=== PATIENT | female | born 1960 | race Caucasian/White ===

== ENCOUNTER → 2017-03-10 | Outpatient (CLI) | payer MEDICARE ==
[~2017-03-10] MED LIST: ACYCLOVIR 400400 MG PO; ALLOPURINOL 10100 M1 PO; CEFUROXIME250 MG PO; CURCUMIN1 GM PO; DYAZIDE 37.5-21 EACH PO; ESTRACE0.5 MG PO; FISH OIL 1,2001 EAC4 PO; FLAGYL500 MG PO; MOBIC7.5 MG PO; OMEPRAZOLE20 M1 PO; PAMELOR25 MG PO; TRAMADOL 50 MG50 MG PO; TRIAMTERENE-HC1 EAC2 PO
== END ==
LOC: M.RAD 15:27
DX: Z12.31 Encounter for screening mammogram for malignant neoplasm of breast (principal); M18.12 Unilateral primary osteoarthritis of first carpometacarpal joint, left hand; K57.30 Diverticulosis of large intestine without perforation or abscess without bleeding

== ENCOUNTER → 2017-04-24 | Outpatient (CLI) | payer MEDICARE ==
[2017-04-24 15:41] LABS: HEMATOCRIT 31.8 % (37.0-47.0); HEMOGLOBIN 10.9 gm/dL (12.0-15.0); MCH 34.4 pg (26.0-34.0); MCHC 34.2 g/dL (28.0-37.0); MCV 100.4 fL (80.0-100.0); MPV 7.1 fl. (7.2-11.1); RBC 3.17 mil/uL (4.20-5.00); RDW-CV 13.2 % (10.5-14.5); WBC 4.3 thou/uL (4.0-11.0)
[2017-04-24 15:46] LABS: CREATININE 0.8 mg/dL (0.6-1.3); POTASSIUM 3.7 mmol/L (3.5-5.1)
== END ==
LOC: M.LAB 15:11
PROVIDERS: Podiatrist Foot & Ankle Surgery
DX: M20.12 Hallux valgus (acquired), left foot (principal); M20.42 Other hammer toe(s) (acquired), left foot; R79.89 Other specified abnormal findings of blood chemistry

== ENCOUNTER → 2017-09-27 | Outpatient (CLI) | payer MEDICARE ==
--- NOTE | 2017-09-28 11:44 | CON ---
[address] [address] CONSULTATION Name: VAL DO Room: [facility].#: [id number] Admission: 09/27/17 Attend Phys: Benito Boland DPM Discharge: Date of : 56 Report #: [id number] THIS REPORT FOR: //name// CC: Benito Vasquez [facility] DATE OF SERVICE: 09/27/2017 ATTENDING PHYSICIAN: Dr. Benito Boland. REASON FOR EVALUATION: This is an initial referral for surgical site infection, right great toe amputation site. HISTORY OF PRESENT ILLNESS: Chart reviewed, patient examined. This is a 56-year-old with a significant peripheral neuropathy, although does not have diabetes, who underwent toe amputation due to bunion, roughly 4 weeks ago. This was complicated by evaluation last week, which showed evidence of wound dehiscence, increasing inflammation, some necrotic tissue. There is question of a surgical site infection, this was cultured, those results are pending. She has been placed empirically on therapy with minocycline. Due to lack of response, this was switched to Bactrim, in addition, until response, there were perhaps adverse drug effects as well with dizziness. Clinically, she is improved more locally at the site. There is overall less inflammation noted. It is open post debridement. ASSESSMENT AND PLAN: Surgical site infection. We will continue plan with prescribed oral sulfamethoxazole, trimethoprim. We will await those culture results. We will see her back in 1 week. Wound care as per prescribed by Dr. Boland. <ELECTRONICALLY SIGNED> By: Sky Moreno MD 09/28/17 1144 1623 0418Jochar Moreno MD /nt
== END ==
LOC: M.WC 09-26 14:00
DX: T81.89XD Other complications of procedures, not elsewhere classified, subsequent encounter (principal); M10.9 Gout, unspecified; G62.9 Polyneuropathy, unspecified; Z90.710 Acquired absence of both cervix and uterus; Y83.8 Other surgical procedures as the cause of abnormal reaction of the patient, or of later complication, without mention of misadventure at the time of the procedure

== ENCOUNTER → 2017-10-04 | Outpatient (CLI) | payer MEDICARE ==
--- NOTE | 2017-10-05 16:41 | CON ---
[address] [address] CONSULTATION Name: VAL DO Room: [facility]#: [id number] Admission: 10/04/17 Attend Phys: Benito Boland DPM Discharge: Date of : 56 Report #: [id number] THIS REPORT FOR: //name// CC: Benito Cruz DATE OF SERVICE: 10/04/2017 ATTENDING PHYSICIAN: Benito Boland DPM. HISTORY OF PRESENT ILLNESS: She returns today in followup after being seen 1 week ago with right great toe amputation site infection, does have an open wound exposed. Evaluation noted to have significant less inflammation superficially. There is no particular odor, no purulent drainage. There is mild degree of debris and exudate. Paulette-wound callous Dr. Boland removed the sutures along the dorsal aspect. There is no apparent exposed bone. ASSESSMENT AND PLAN: Surgical site infection. We will extend the antibiotics 1 additional week. We will see her back at that point and likely discontinue. She is to continue wound care as prescribed by Dr. Boland, offload and continue wound , optimize her nutritional status. <ELECTRONICALLY SIGNED> By: Sky Moreno MD 10/05/17 1641 0911 1330Joseph Austyn Moreno MD /nt
== END ==
LOC: M.WC 01:37
DX: T87.81 Dehiscence of amputation stump (principal); L89.893 Pressure ulcer of other site, stage 3; L84 Corns and callosities; M10.9 Gout, unspecified; Y83.5 Amputation of limb(s) as the cause of abnormal reaction of the patient, or of later complication, without mention of misadventure at the time of the procedure

== ENCOUNTER → 2017-10-11 | Outpatient (CLI) | payer MEDICARE ==
--- NOTE | 2017-10-12 15:01 | CON ---
[address] [address] CONSULTATION Name: VAL DO Room: [facility]#: [id number] Admission: 10/11/17 Attend Phys: Benito Boland DPM Discharge: Date of : 56 Report #: [id number] THIS REPORT FOR: //name// CC: Benito Cruz DATE OF SERVICE: 10/12/2017 INFECTIOUS DISEASE CONSULTATION FOLLOWUP ATTENDING PHYSICIAN: Benito Boland DPM. HISTORY OF PRESENT ILLNESS: She is here for followup great toe amputation site due to chronic osteomyelitis. She has completed prescribed course of therapy. On evaluation, the wound appears to be overall less inflamed. Denies any localizing signs or symptoms, although she does have significant peripheral neuropathy. She has not been systemically ill. ASSESSMENT AND PLAN: Surgical site infection. She has completed the prescribed course of Bactrim. We will discontinue the antibiotics at this point and follow. Continue wound care as prescribed by Dr. Boland and we will see as noted. <ELECTRONICALLY SIGNED> By: Sky Moreno MD 10/12/17 1501 0900 1243Sky Moreno MD /nt
== END ==
LOC: M.WC 04:37
DX: T87.89 Other complications of amputation stump (principal); L89.893 Pressure ulcer of other site, stage 3; L84 Corns and callosities; M10.9 Gout, unspecified; G62.9 Polyneuropathy, unspecified; Y83.5 Amputation of limb(s) as the cause of abnormal reaction of the patient, or of later complication, without mention of misadventure at the time of the procedure

== ENCOUNTER → 2017-10-18 | Outpatient (CLI) | payer MEDICARE ==
--- NOTE | 2017-10-20 07:56 | CON ---
[address] [address] CONSULTATION Name: VAL DO Room: [facility] [place]#: [id number] Admission: 10/18/17 Attend Phys: Benito Boland DPM Discharge: Date of : 56 Report #: [id number] THIS REPORT FOR: //name// CC: Benito Cruz DATE OF SERVICE: 10/18/2017 ATTENDING PHYSICIAN: Dr. Benito Rios. REASON FOR EVALUATION: She is status post right great toe amputation due to deep infection. HISTORY OF PRESENT ILLNESS: Chart reviewed. The patient presents for followup, having been discontinued from the antibiotics one week ago. She felt there may be slightly increase in the redness. She denies any localizing signs or symptoms, although it is notable that she has significant peripheral neuropathy. She has not been systemically ill. On examination, there is a mild degree of erythema. I think it is more consistent with hyperemia. There is no particular odor, no purulence. There is no exposed bone at this point. Per the nurse the dimensions measure smaller. ASSESSMENT AND PLAN: Right great toe amputation secondary to a deep infection complicated by surgical site infection. We will continue off antibiotics. She was instructed to call if she felt there was increasing in inflammation. Again, the cardinal signs were discussed. We will plan on seeing her back in 1 week. Continue offloading and wound care. <ELECTRONICALLY SIGNED> By: Sky Moreno MD 10/20/17 [phone] [id number] Austyn Moreno MD /nt
== END ==
LOC: M.WC 04:53
DX: T87.89 Other complications of amputation stump (principal); L89.893 Pressure ulcer of other site, stage 3; L84 Corns and callosities; G62.9 Polyneuropathy, unspecified; M10.9 Gout, unspecified; Z90.710 Acquired absence of both cervix and uterus; Y83.5 Amputation of limb(s) as the cause of abnormal reaction of the patient, or of later complication, without mention of misadventure at the time of the procedure

== ENCOUNTER → 2017-10-25 | Outpatient (CLI) | payer MEDICARE ==
--- NOTE | 2017-10-26 11:07 | CON ---
[address] [address] CONSULTATION Name: VAL DO Room: [facility] [place]#: [id number] Admission: 10/25/17 Attend Phys: Benito Boland DPM Discharge: Date of : 56 Report #: [id number] THIS REPORT FOR: //name// CC: Benito Cruz DATE OF SERVICE: 10/25/2017 ATTENDING PHYSICIAN: Dr. Benito Boland. HISTORY OF PRESENT ILLNESS: The patient is seen in followup status post right great toe amputation with residual ulcer. She was seen last week, felt to have increasing inflammation at the site after several weeks post-procedure. Wound was cultured, did have a heavy growth of coag-negative Staph with multi-resistant organism. Today; however, the site appears to be improved, showing no drainage, no particular odor, no significant tissue breakdown. She denies any systemic illness. She has profound peripheral neuropathy. Right great toe amputation. I was present with Dr. Boland, who debrided the wound base, appears to be quite firm. There is no bogginess to it, no friability to suggest infection. Chronic right great toe amputation site ulcer. At this point, would add gentamicin as a topical therapy. We will hold off any systemic antibiotics at this point. Continue wound care as prescribed. She was instructed to call if she was worsening. Follow up in 1 week. <ELECTRONICALLY SIGNED> By: Sky Moreno MD 10/26/17 1107 0634 0650Josekelsey Moreno MD /nt
== END ==
LOC: M.WC 03:06
DX: T87.43 Infection of amputation stump, right lower extremity (principal); L89.893 Pressure ulcer of other site, stage 3; L84 Corns and callosities; G62.9 Polyneuropathy, unspecified; M10.9 Gout, unspecified; Y83.5 Amputation of limb(s) as the cause of abnormal reaction of the patient, or of later complication, without mention of misadventure at the time of the procedure

== ENCOUNTER → 2017-11-01 | Outpatient (CLI) | payer MEDICARE ==
--- NOTE | 2017-11-02 12:26 | CON ---
[address] [address] CONSULTATION Name: VAL DO [id number] Admission: 11/01/17 Attend Phys: Benito Boland DPM Discharge: Date of : 56 Report #: [id number] THIS REPORT FOR: //name// CC: Benito Cruz DATE OF SERVICE: 11/01/2017 INFECTIOUS DISEASE CONSULTATION AND FOLLOWUP ATTENDING PHYSICIAN: Dr. Benito Rios. HISTORY OF PRESENT ILLNESS: She is here for wound post right great toe amputation at the base. This was postoperative complication of superficial infection. She did receive a course of systemic and now topical therapy with gentamicin, had some coag-negative Staphylococcus. She has generally been doing well over the course of the last couple of weeks. Denies any particular discomfort. It is notable she has profound peripheral neuropathy. The drainage has improved. The overall appearance is decreased inflammation. She has not been systemically ill. Dr. Boland debrided the site, there was no exposed bone. Granulation tissue continues to improve, overall size of the wound is perhaps marginally smaller. Postoperative infection, post right great toe amputation. At this point, we would continue the topical gentamicin to improve antimicrobial control at the site. Note, we would not extend any systemic antibiotics. Continue wound care as prescribed by Dr. Boland. We will be available as needed. <ELECTRONICALLY SIGNED> By: Sky Moreno MD 11/02/17 1226 0904 1112Jochar Moreno MD /darcy
== END ==
LOC: M.WC 05:20
DX: T81.31XD Disruption of external operation (surgical) wound, not elsewhere classified, subsequent encounter (principal); L89.893 Pressure ulcer of other site, stage 3; L84 Corns and callosities; L03.115 Cellulitis of right lower limb; G62.9 Polyneuropathy, unspecified; M10.9 Gout, unspecified; Y83.8 Other surgical procedures as the cause of abnormal reaction of the patient, or of later complication, without mention of misadventure at the time of the procedure

== ENCOUNTER → 2017-11-08 | Outpatient (CLI) | payer MEDICARE | LOC: M.WC 04:31 | DX: T87.89 Other complications of amputation stump (principal); L89.893 Pressure ulcer of other site, stage 3; L84 Corns and callosities; G62.9 Polyneuropathy, unspecified; M10.9 Gout, unspecified; Y83.5 Amputation of limb(s) as the cause of abnormal reaction of the patient, or of later complication, without mention of misadventure at the time of the procedure ==

== ENCOUNTER → 2017-11-29 | Outpatient (CLI) | payer MEDICARE | LOC: M.WC 05:43 | DX: T87.89 Other complications of amputation stump (principal); L89.893 Pressure ulcer of other site, stage 3; L84 Corns and callosities; G62.9 Polyneuropathy, unspecified; M10.9 Gout, unspecified; Y83.5 Amputation of limb(s) as the cause of abnormal reaction of the patient, or of later complication, without mention of misadventure at the time of the procedure ==

== ENCOUNTER → 2017-12-13 | Outpatient (CLI) | payer MEDICARE | LOC: M.WC 03:02 | DX: T87.89 Other complications of amputation stump (principal); L89.893 Pressure ulcer of other site, stage 3; L84 Corns and callosities; G62.9 Polyneuropathy, unspecified; M10.9 Gout, unspecified; Y83.5 Amputation of limb(s) as the cause of abnormal reaction of the patient, or of later complication, without mention of misadventure at the time of the procedure ==

== ENCOUNTER → 2018-01-10 | Outpatient (CLI) | payer MEDICARE | LOC: M.WC 12-27 13:00 | DX: T81.89XD Other complications of procedures, not elsewhere classified, subsequent encounter (principal); L84 Corns and callosities; Z89.411 Acquired absence of right great toe; Y83.8 Other surgical procedures as the cause of abnormal reaction of the patient, or of later complication, without mention of misadventure at the time of the procedure ==

== ENCOUNTER → 2018-02-22 | Outpatient (CLI) | payer MEDICARE | LOC: M.ULTRA 13:43 | DX: M79.89 Other specified soft tissue disorders (principal); R22.32 Localized swelling, mass and lump, left upper limb ==

== ENCOUNTER → 2018-06-11 | Outpatient (CLI) | payer MEDICARE | LOC: M.RAD 13:16 | DX: Z12.31 Encounter for screening mammogram for malignant neoplasm of breast (principal) ==

== ENCOUNTER → 2018-10-05 | Outpatient (CLI) | payer MEDICARE | LOC: M.MRI 11:10 | DX: M51.16 Intervertebral disc disorders with radiculopathy, lumbar region (principal); M48.061 Spinal stenosis, lumbar region without neurogenic claudication; M41.86 Other forms of scoliosis, lumbar region ==

== ENCOUNTER → 2019-03-05 | Outpatient (CLI) | payer MEDICARE ==
[~2019-03-05] MED LIST changes: +ALEVE220 M1 PO
--- NOTE | ~2019-03-05 | PAINCON ---
[place] [address] PAIN MANAGEMENT CONSULTATION Name: VAL DO Room: [facility] RogersJonathan#: [id number] Admission: 03/05/19 Attend Phys: Brett Hawkins MD Discharge: Date of : 56 Report #: [id number] THIS REPORT FOR: //name// CC: Christina Galdamez DATE OF SERVICE: 03/05/2019 CHIEF COMPLAINT: Low back pain with pain down into the right leg. HISTORY: The patient is a 58-year-old female who has been referred to the Pain Clinic because of pain, which is radiating down in her right leg. It also involves the thigh. The patient has tried physical therapy. She is unable to do this secondary to the pain. She had epidural steroid injections in the distant past. These were beneficial. She feels that another injection might be helpful. She has been experiencing some pain and discomfort down in her feet, which is of a neuropathic in nature. She did have back surgery in 2011. She also had foot surgery in 2016. She denies any new bowel or bladder dysfunction. PAST MEDICAL HISTORY: Herpes, hypertension, gout, and peripheral neuropathy. History of diverticulitis and symptomatic lumbar radiculopathy and lumbosacral spondylosis without myelopathy. PAST SURGICAL HISTORY: Hysterectomy 2000, back surgery 2011, tonsillectomy 1977, and foot surgery, right side . ALLERGIES: No known drug allergies. CURRENT MEDICATIONS: Acyclovir 400 mg, Estrace 0.5 mg, Naprosyn 220 mg every 8 hours p.r.n., Pamelor 25 mg, omeprazole 20 mg, tramadol 50 mg t.i.d., triamterene/hydrochlorothiazide 37.5/25, and turmeric 1 gram powder. SOCIAL HISTORY: The patient is on disability, not working at this juncture, receiving workmen's compensation disability income. REVIEW OF SYSTEMS: Generally good health, sore throat, swollen glands and neck, bowel movement changes, back pain, lightheadedness, and dizziness. LABORATORY DATA: No new laboratory values are available. Old MRI dated 03/09/2011 indicates small broad-based posterior disk bulge. There is some a mild facet arthrosis. There is no significant central canal stenosis. At L5-S1, there is a small diffuse posterior disk bulge with a shallow right paracentral disk protrusion. Right convexity, lumbar scoliosis with multilevel lumbar spondylosis including degenerative disk and facet arthrosis, most prominent along the mid and left aspects of the L2-L3 and L3-[place] [address] PAIN MANAGEMENT CONSULTATION Name: HIBRAXTON HOLLYSue Rogers Room: [facility]#: [id number] Admission: 03/05/19 Attend Phys: Brett Hawkins MD Discharge: Date of : 56 Report #: [id number] PAIN CLINIC ASSESSMENT AND PQRS: 1. Height 5 feet 9 inches, weight 149 pounds, BMI is 22. 2. Vital signs: Blood pressure 131/85, heart rate 77, respiratory rate 16, room air saturation 96%, and temperature 97.4. 3. Pain intensity 7/10. 4. Fall history: The patient has not fallen in the last 3 months. 5. Blood thinner. The patient is not on a blood thinning medication. 6. Hypertension. The patient is being treated for hypertension. 7. Opioids greater than 6 weeks. The patient is not on an opioid regimen on a regular basis. 8. Risk assessment tool, low for opioid use. 9. Functional assessment tool reviewed, score 30/70. 10. Recreational drug use: The patient denies. 11. Tobacco: The patient denies. 12. Alcohol: The patient rarely drinks alcoholic beverages. PHYSICAL EXAMINATION: GENERAL: The patient is a well-developed, well-nourished white female. Appears her stated age. She is alert and oriented x 3. Her affect is appropriate. Speech is fluent. HEENT: Normocephalic, atraumatic. Extraocular eye muscles intact. Sclerae nonicteric. Mucous membranes are moist. NECK: Without adenopathy or JVD. HEART: Regular rate. LUNGS: Clear to auscultation. ABDOMEN: Nontender. Bowel sounds present. EXTREMITIES: Upper extremity muscle strength judged to be 5/5 for the major muscle groups in the upper extremity. The patient has pain and discomfort in lower portion of her back with pain radiating down to the right thigh and into the anterior area in the L2-L3 dermatome of her thigh. Muscle strength is judged to be 5-/5 for the major muscle groups in the lower extremity on the right and 5/5 for the major muscle groups on the left. IMPRESSION: 1. Lumbar radicular pain in the L2-L3 area on the right leg. 2. Herpes. 3. Hypertension. 4. Gout. 5. Peripheral neuropathy. 6. History of diverticulitis. 7. Symptomatic lumbar radiculopathy. 8. Lumbosacral spondylosis without myelopathy. RECOMMENDATIONS: We discussed treatment options with the patient. Risks and benefits of an epidural steroid injection were discussed. They include but are [address] [place] [address] PAIN MANAGEMENT CONSULTATION Name: VAL DO Room: [facility]#: [id number] Admission: 03/05/19 Attend Phys: Brett Hawkins MD Discharge: Date of : 56 Report #: [id number] not limited to infection, worsening pain, no improvement in pain, nerve damage, spinal headache and the patient agrees to proceed. Questions were sought and answered. PROCEDURE: The patient was then taken to the procedure area. She was then assisted in getting on the examination table. Fluoroscopy using anterior, posterior as well as lateral viewing were implemented. A 17-gauge Tuohy with loss of resistance technique at the L2-L3 area was advanced into the area of the epidural space after this area had been infiltrated with 0.25% bupivacaine to anesthetize it. A total of 80 mg Depo-Medrol, 40 mg triamcinolone, and 2 mL of 0.25% bupivacaine was injected. The patient tolerated the procedure well. Her pain decreased from 7-0 at the time of discharge. She will follow up in the future as needed. Total of 27 seconds fluoroscopy time was used. We would like to thank you for letting us participate in her care. We hope she continues to improve. By: [id number] [id number]. Riley Hawkins MD /nt
== END | disposition home or self-care (01) ==
LOC: M.PC 02-21 10:10
DX: M54.16 Radiculopathy, lumbar region (principal); G89.29 Other chronic pain; M47.897 Other spondylosis, lumbosacral region; I10 Essential (primary) hypertension; M10.9 Gout, unspecified; G62.9 Polyneuropathy, unspecified; Z98.890 Other specified postprocedural states; Z79.899 Other long term (current) drug therapy; Z90.710 Acquired absence of both cervix and uterus

== ENCOUNTER → 2019-07-02 | Outpatient (CLI) | payer MEDICARE | END | disposition home or self-care (01) | LOC: M.PC 05:04 | DX: M54.16 Radiculopathy, lumbar region (principal); G89.29 Other chronic pain; Z98.890 Other specified postprocedural states; Z79.899 Other long term (current) drug therapy ==

== ENCOUNTER → 2019-10-10 | Outpatient (CLI) | payer MEDICARE ==
--- NOTE | ~2019-10-10 | PAINCON ---
[address] [address] PAIN MANAGEMENT CONSULTATION Name: HIVAL A [id number] Admission: 10/10/19 Attend Phys: Brett Hawkins MD Discharge: Date of : 56 Report #: [id number] THIS REPORT FOR: //name// cc: Christina Cruz Maggie M. DO ~ THIS REPORT FOR: //name// CC: Christina Hawkins DATE OF SERVICE: 10/10/2019 CHIEF COMPLAINT: Back pain and I would like to have another injection. HISTORY: The patient is a 58-year-old female who has been seen in the pain clinic because of lumbar radiculopathy. Epidural steroid injections have been helpful. She is noticing more pain while standing. She is experiencing pain that is radiating down into her leg. She does complain of neuropathy in her feet. The anterior portion of her right leg shows signs of weakness. She also has pain down in her foot with pins and needle sensation in the second toe. She did have a plate in the toe. It fractured and was removed. She rates her pain today as a 9/10. ALLERGIES: No known drug allergies. CURRENT MEDICATIONS: Acyclovir 400 mg, Estrace 0.5 mg, Naprosyn 220 mg every 8 hours, Pamelor 25 mg, omeprazole 20 mg, tramadol 50 mg t.i.d., triamterene/hydrochlorothiazide 37.5/25 and turmeric 1 gram powder. PAIN CLINIC ASSESSMENT AND PQRS: 1. The patient has had back problems with arthritis. The patient is not being treated for rheumatoid arthritis. 2. Height is 5 feet 8 inches, weight 146 pounds, BMI is 22.3. 3. Vital Signs: Blood pressure 136/73, heart rate 89, respiratory rate 16, room air saturation 98, and temperature 98.0. 4. Pain intensity /10. 5. Fall history: The patient has not fallen in the last 3 months. 6. Blood thinner. The patient is not on a blood thinning medication. 7. Hypertension. The patient is being treated for hypertension. 8. Opioids greater than 6 weeks. The patient receives medication from one source the pain clinic. 9. Risk assessment tool, low for opioid use. 10. Functional assessment tool, . 11. Recreational drug use. The patient denies. 12. Tobacco: The patient denies. 13. Alcohol. The patient [place] [address] PAIN MANAGEMENT CONSULTATION Name: VAL DO Sue Room: [facility]#: [id number] Admission: 10/10/19 Attend Phys: Brett Hawkins MD Discharge: Date of : 56 Report #: [id number] PHYSICAL EXAMINATION: GENERAL: The patient is a well-developed, well-nourished white female. Appears her stated age. She is alert and oriented x 3. Her affect is appropriate. Speech is fluent. HEENT: Normocephalic, atraumatic. Extraocular eye muscles intact. Sclerae nonicteric. Mucous membranes are moist. NECK: Without adenopathy or JVD. HEART: Regular rate. LUNGS: Generally clear. ABDOMEN: Nontender. Bowel sounds present. MUSCULOSKELETAL: Upper extremity muscle strength judged to be 5-/5 for the major muscle groups in the upper extremity. The patient has pain and discomfort that is radiating down to the right leg into the anterior thigh as well as in the area of her hip. Pain is noted in the L2-L3 dermatomal distribution. She also has some discomfort in the L1-L2 area. IMPRESSION: 1. Lumbar radiculopathy, L1-L2 and L2-L3 area involving the right leg. 2. History of herpes. 3. Hypertension. 4. Gout. 5. Peripheral neuropathy. 6. History of diverticulitis. 7. History of lumbar radiculopathy. 8. Lumbosacral spondylosis without myelopathy. RECOMMENDATIONS: We discussed the treatment options with the patient. Risks and benefits of an epidural steroid injection were again discussed. Possible complications of the procedure, which could include but are not limited to infection, worsening pain, no improvement in pain, nerve damage and the patient elects to proceed. We discussed the problems COVID virus. It is pandemic. Steroids can decrease one's immune response. Should the patient become infected as a result of COVID virus she may have a more problematic recovery. She elects to proceed. PROCEDURE NOTE: The patient was taken to the procedure area. She was then assisted in getting on examination table. Her back was sterilely prepped with a Betadine solution. A 0.25% bupivacaine was infiltrated at the L2-L3 interspace. This area was anesthetized with 0.25% bupivacaine using a 25-gauge needle. Fluoroscopy was used to corroborate the appropriate placement. A 17-gauge Tuohy with loss of resistance technique was used to gain access to the epidural space. There was no CSF, heme or paresthesia. Total of 80 mg Depo-Medrol, 40 mg triamcinolone and 2 mL of 0.25% bupivacaine was injected. The patient tolerated the procedure well. Approximately 10 seconds fluoroscopy time was used. [address] [address] PAIN MANAGEMENT CONSULTATION Name: VAL DO [facility] [id number] Admission: 10/10/19 Attend Phys: Brett Hawkins MD Discharge: Date of : 56 Report #: [id number] We would like to thank you for letting us participate in her care. We hope she continues to improve. By: 1519 1643N. Riley Hawkins MD /nt
== END | disposition home or self-care (01) ==
LOC: M.PC 11:25
PROVIDERS: ATTEND Anesthesiology Pain Medicine
DX: M47.26 Other spondylosis with radiculopathy, lumbar region (principal); M48.061 Spinal stenosis, lumbar region without neurogenic claudication; I10 Essential (primary) hypertension; G62.9 Polyneuropathy, unspecified; M10.9 Gout, unspecified; Z79.899 Other long term (current) drug therapy

== ENCOUNTER → 2019-11-12 | Outpatient (CLI) | payer MEDICARE ==
--- NOTE | ~2019-11-12 | PAINCON ---
[address] [address] PAIN MANAGEMENT CONSULTATION Name: HIVAL A Room: [facility]#: [id number] Admission: 11/12/19 Attend Phys: Brett Hawkins MD Discharge: Date of : 56 Report #: [id number] THIS REPORT FOR: //name// cc: Christina Cruz Maggie M. DO ~ THIS REPORT FOR: //name// CC: Christina Hawkins DATE OF SERVICE: 11/12/2019 CHIEF COMPLAINT: Pain in the low back and bilateral hips. HISTORY: The patient is a 58-year-old female who has been followed in the pain clinic because of lumbar radiculopathy. She has undergone epidural steroid injections. At the last injection, she gleaned 100% improvement in her pain. She does now note the return of pain and discomfort. It continues to radiate down into the right leg. She rates her pain as a 6/10. She has had no complication from the procedure in the past. She has returned today with the hopes of undergoing an epidural steroid injection to help quell her pain and discomfort. ALLERGIES: No known drug allergies. CURRENT MEDICATIONS: Acyclovir 400 mg, Estrace 0.5 mg, Naprosyn 220 mg q.8 hours, Pamelor 25 mg, omeprazole 20 mg, tramadol 50 mg 1 p.o. t.i.d., triamterene/hydrochlorothiazide 37.5/25 and turmeric 1 gram powder. PAIN CLINIC ASSESSMENT AND PQRS: 1. The patient has some problems with her back with osteoarthritis. The patient is not being treated for rheumatoid arthritis. 2. Height 5 feet 8 inches, weight 146 pounds, BMI is 23. 3. Vital Signs: Blood pressure 153/100, heart rate 88, respiratory rate 16, room air saturation 96%, temperature 98.9. 4. Pain intensity: /10. 5. Fall history: The patient has not fallen since we saw her last. 6. Blood thinner: The patient is not on a blood thinning medication. 7. Hypertension: The patient is being treated for hypertension. 8. Opioids greater than 6 weeks: The patient receives medication from the pain clinic. 9. Risk assessment tool: Low for opioid use. 10. Functional assessment tool: . 11. Recreational drug use: The patient denies. 12. Tobacco: The patient denies. 13. Alcohol: The [place] [address] PAIN MANAGEMENT CONSULTATION Name: VAL DO Room: [facility]#: [id number] Admission: 11/12/19 Attend Phys: Brett Hawkins MD Discharge: Date of : 56 Report #: [id number] PHYSICAL EXAMINATION: GENERAL: The patient is a well-developed, well-nourished white female. Appears her stated age. She is alert and oriented x 3. Her affect is appropriate. Speech is fluent. HEENT: Normocephalic, atraumatic. Extraocular eye muscles intact. Sclerae nonicteric. The patient is wearing a facial covering. NECK: Without adenopathy or JVD. HEART: Regular rate. LUNGS: Clear. ABDOMEN: Nontender. Bowel sounds present. MUSCULOSKELETAL: The patient without significant kyphosis or lordosis. The patient has pain and discomfort with pain that is radiating down to the right leg involving the anterior thigh as well as in the area of her hip. She has pain in the L2-L3 dermatomal distribution. She also has some discomfort in the L1-L2 area. IMPRESSION: 1. Lumbar radiculopathy, L1-L2 and L2-L3 areas involving the right leg. 2. History of herpes. 3. Hypertension. 4. Gout. 5. Peripheral neuropathy. 6. History of diverticulitis. 7. History of lumbar radiculopathy. 8. Lumbosacral spondylosis without myelopathy. RECOMMENDATIONS: We discussed treatment options with the patient. Risks and benefits of an epidural steroid injection were again discussed. Possible complications of the procedure were reviewed. The patient elects to proceed. PROCEDURE NOTE: The patient was taken to the procedure area. She was then assisted in getting on the examination table. Her back was sterilely prepped with a Betadine solution. Fluoroscopy was used to identify the L2-L3 area. The L2-L3 area was sterilely prepped with a Betadine solution. A 17-gauge Tuohy with loss of resistance technique was used to gain access to the epidural space after it had been anesthetized with 0.25% bupivacaine. A total of 80 mg Depo-Medrol, 40 mg triamcinolone, and 2 mL of 0.25% bupivacaine was injected. A total of 7 seconds fluoroscopy time was used. The patient's pain decreased to 0 at the time of discharge. She will follow up in the future as needed. [address] [address] PAIN MANAGEMENT CONSULTATION Name: VAL DO Room: [facility]#: [id number] Admission: 11/12/19 Attend Phys: Brett Hawkins MD Discharge: Date of : 56 Report #: [id number] We would like to thank you for letting us participate in her care. We hope she continues to improve. By: 0826 1542N. Riley Hawkins MD /nt
== END | disposition home or self-care (01) ==
LOC: M.PC 11-07 11:20
PROVIDERS: ATTEND Anesthesiology Pain Medicine
DX: M54.16 Radiculopathy, lumbar region (principal); G89.29 Other chronic pain; M47.817 Spondylosis without myelopathy or radiculopathy, lumbosacral region; I10 Essential (primary) hypertension; M10.9 Gout, unspecified; Z87.19 Personal history of other diseases of the digestive system; Z98.890 Other specified postprocedural states; Z79.899 Other long term (current) drug therapy

== ENCOUNTER → 2019-11-25 | Outpatient (CLI) | payer MEDICARE | LOC: M.RAD 10:55 | PROVIDERS: ATTEND Family Medicine | DX: Z12.31 Encounter for screening mammogram for malignant neoplasm of breast (principal) ==

== ENCOUNTER → 2020-04-23 | Outpatient (CLI) | payer MEDICARE | END | disposition home or self-care (01) | LOC: M.PC 09:09 | PROVIDERS: ATTEND Anesthesiology Pain Medicine | DX: M51.16 Intervertebral disc disorders with radiculopathy, lumbar region (principal); G89.4 Chronic pain syndrome; I10 Essential (primary) hypertension; M10.9 Gout, unspecified; G62.9 Polyneuropathy, unspecified; Z98.890 Other specified postprocedural states; Z79.899 Other long term (current) drug therapy; Z87.19 Personal history of other diseases of the digestive system ==

== ENCOUNTER → 2020-05-13 | Outpatient (CLI) | payer MEDICARE | LOC: M.WC 13:00 | PROVIDERS: ATTEND Podiatrist Foot & Ankle Surgery | DX: L89.899 Pressure ulcer of other site, unspecified stage (principal); L03.116 Cellulitis of left lower limb; G60.0 Hereditary motor and sensory neuropathy; H26.9 Unspecified cataract; M10.9 Gout, unspecified; Z90.710 Acquired absence of both cervix and uterus ==

== ENCOUNTER → 2020-05-26 | Outpatient (CLI) | payer MEDICARE | LOC: M.PC 05-21 10:00 | PROVIDERS: ATTEND Anesthesiology Pain Medicine | DX: M54.16 Radiculopathy, lumbar region (principal); I10 Essential (primary) hypertension; M10.9 Gout, unspecified; G62.9 Polyneuropathy, unspecified; Z87.19 Personal history of other diseases of the digestive system ==

== ENCOUNTER → 2020-05-27 | Outpatient (CLI) | payer MEDICARE | LOC: M.WC 12:34 | PROVIDERS: ATTEND Podiatrist Foot & Ankle Surgery | DX: L89.893 Pressure ulcer of other site, stage 3 (principal); L03.116 Cellulitis of left lower limb; G60.0 Hereditary motor and sensory neuropathy; H26.9 Unspecified cataract; M10.9 Gout, unspecified; Z90.710 Acquired absence of both cervix and uterus ==

== ENCOUNTER → 2020-06-10 | Outpatient (CLI) | payer MEDICARE | LOC: M.WC 12:27 | PROVIDERS: ATTEND Podiatrist Foot & Ankle Surgery | DX: L89.893 Pressure ulcer of other site, stage 3 (principal); L03.116 Cellulitis of left lower limb; G60.0 Hereditary motor and sensory neuropathy; H26.9 Unspecified cataract; M10.9 Gout, unspecified; Z90.710 Acquired absence of both cervix and uterus ==

== ENCOUNTER → 2020-06-24 | Outpatient (CLI) | payer MEDICARE | LOC: M.WC 10:02 | PROVIDERS: ATTEND Podiatrist Foot & Ankle Surgery | DX: L89.893 Pressure ulcer of other site, stage 3 (principal); L03.116 Cellulitis of left lower limb; G60.0 Hereditary motor and sensory neuropathy; H26.9 Unspecified cataract; M10.9 Gout, unspecified; Z90.710 Acquired absence of both cervix and uterus; Z89.411 Acquired absence of right great toe ==

== ENCOUNTER → 2020-07-23 | Outpatient (CLI) | payer MEDICARE ==
[~2020-07-23] MED LIST changes: +ULTRAM 50MG TAB50 MG PO
== END | disposition home or self-care (01) ==
LOC: M.PC 08:11
PROVIDERS: ATTEND Anesthesiology Pain Medicine
DX: M54.16 Radiculopathy, lumbar region (principal); G89.29 Other chronic pain; I10 Essential (primary) hypertension; M10.9 Gout, unspecified; G62.9 Polyneuropathy, unspecified; Z98.890 Other specified postprocedural states; Z79.899 Other long term (current) drug therapy; Z98.51 Tubal ligation status; Z87.19 Personal history of other diseases of the digestive system

== ENCOUNTER → 2020-08-12 | Outpatient (CLI) | payer MEDICARE | LOC: M.WC 13:14 | PROVIDERS: ATTEND Podiatrist Foot & Ankle Surgery | DX: T81.89XA Other complications of procedures, not elsewhere classified, initial encounter (principal); L89.893 Pressure ulcer of other site, stage 3; L03.116 Cellulitis of left lower limb; G60.0 Hereditary motor and sensory neuropathy; H26.9 Unspecified cataract; M10.9 Gout, unspecified; Z90.710 Acquired absence of both cervix and uterus; Z89.411 Acquired absence of right great toe; Y92.238 Other place in hospital as the place of occurrence of the external cause; Y83.8 Other surgical procedures as the cause of abnormal reaction of the patient, or of later complication, without mention of misadventure at the time of the procedure ==

== ENCOUNTER → 2020-08-20 | Outpatient (CLI) | payer MEDICARE | LOC: M.MRI 07:30 | PROVIDERS: ATTEND Family Medicine | DX: S91.302D Unspecified open wound, left foot, subsequent encounter (principal); G62.9 Polyneuropathy, unspecified; M86.8X7 Other osteomyelitis, ankle and foot; R60.0 Localized edema; Z89.422 Acquired absence of other left toe(s); X58.XXXD Exposure to other specified factors, subsequent encounter ==